=== PATIENT | male | born 1940 | race Caucasian/White ===

== ENCOUNTER 2025-06-07 12:04 | Inpatient (IN) | payer OTHER, MEDICAID ==
[~2025-06-07] VITALS: Ht 167.6 cm; Wt 78.2 kg
[2025-06-07] MEDS ORDERED: ACETAMINOPHEN 325MG TABLET PO ONE (12:45)
[2025-06-07 13:12] LABS: BASOPHILS % 0.2 % (0.0-2.0); EOSINOPHILS % 0.7 % (0.0-5.0); LYMPHOCYTES % 32.2 % (20.0-50.0); MEAN PLATELET VOLUME 7.7 fl (7.4-10.4); MONOCYTES % 12.8 % (2.0-8.0); NEUTROPHILS % 54.1 % (40.0-76.0); PLATELET 130 x1000/uL (130-400); RED BLOOD CELL COUNT 1.59 mill/uL (4.7-6.1); RED CELL DISTRIBUTION WIDTH 21.8 % (11.6-14.6)
[2025-06-07 13:46] LABS: CREATININE 3.3 mg/dL (0.6-1.3); UREA NITROGEN BLOOD 57 mg/dL (9-23)
[2025-06-07 13:47] LABS: HEMATOCRIT. 14.7 % (42.0-52.0); HEMOGLOBIN. 4.9 g/dL (14.0-18.0)
[2025-06-07 13:48] LABS: ASPARTATE AMINOTRANSFERASE 20 IU/L (<34); BILIRUBIN DIRECT 0.1 mg/dL (<=3.0); BILIRUBIN TOTAL 0.3 mg/dL (0.1-1.0)
[2025-06-07 13:49] LABS: PROTEIN TOTAL 9.7 g/dL (6.0-8.3)
[2025-06-07 14:02] LABS: TROPONIN I HIGH SENSITIVITY 814 ng/L (3.0-53)
[2025-06-07] MEDS: LACTATED RINGERS 1,000 ML IV SCH (14:35)
[2025-06-07] MEDS: ACETAMINOPHEN 325MG TABLET PO SCH (14:39)
[2025-06-07 15:36] LABS: TROPONIN I HIGH SENSITIVITY 939 ng/L (3.0-53)
[2025-06-07] MEDS ORDERED: ONDANSETRON HCL 4MG/2ML INJ IV PRN (16:00)
[2025-06-07] MEDS ORDERED: IPRATROPIUM/ALBUTEROL 0.5-3(2.5)MG/3ML NEB NEB PRN (16:00)
[2025-06-07] MEDS ORDERED: ACETAMINOPHEN 325MG TABLET PO PRN (16:00)
[2025-06-07] MEDS ORDERED: MAGNESIUM/ALUMINUM HYDROXIDE/SIMETHICONE 30ML UDC PO PRN (16:00)
[2025-06-07] MEDS ORDERED: NALOXONE HCL 0.4MG/ML VIAL IV PRN (16:15)
[2025-06-07 20:00] VITALS: BP 100/69; PULSE 57; RESP 17; TEMP 36.8; O2SAT 98
[2025-06-07] MEDS ORDERED: PANT40TA51 PO (21:10)
[2025-06-07] MEDS ORDERED: EMPA10TA PO (21:10)
[2025-06-07] MEDS ORDERED: ASPI-1160 PO (21:10)
[2025-06-07] MEDS ORDERED: FURO40TA5 PO (21:10)
[2025-06-07] MEDS ORDERED: BENA-8 PO (21:10)
[2025-06-07] MEDS ORDERED: ATOR40TA70 PO (21:10)
[2025-06-07] MEDS ORDERED: TAMS-54 (21:10)
[2025-06-07 22:00] VITALS: BP 123/66; PULSE 58; RESP 17; O2SAT 98
[2025-06-07 22:22] VITALS: BP 100/69; PULSE 57; RESP 17; TEMP 36.7516
[2025-06-07 22:44] LABS: TROPONIN I HIGH SENSITIVITY 1103 ng/L (3.0-53)
[2025-06-08] VITALS (12 sets, daily range): BP systolic 111–154; BP diastolic 58–80; PULSE 55–70; RESP 13–22; TEMP 36.1–37; O2SAT 98–100
[2025-06-08] MEDS: PIPERACILLIN/TAZO 3.375G/50ML 50 ML IV SCH
[2025-06-08] MEDS: SODIUM CHLORIDE 0.9% 1,000 ML IV SCH (02:17)
[2025-06-08 06:49] LABS: BASOPHILS % 0.3 % (0.0-2.0); EOSINOPHILS % 1.1 % (0.0-5.0); HEMATOCRIT. 22.4 % (42.0-52.0); HEMOGLOBIN. 7.3 g/dL (14.0-18.0); LYMPHOCYTES % 32.0 % (20.0-50.0); MEAN PLATELET VOLUME 8.0 fl (7.4-10.4); MONOCYTES % 14.1 % (2.0-8.0); NEUTROPHILS % 52.5 % (40.0-76.0); PLATELET 110 x1000/uL (130-400); RED BLOOD CELL COUNT 2.49 mill/uL (4.7-6.1); RED CELL DISTRIBUTION WIDTH 20.8 % (11.6-14.6)
[2025-06-08 07:01] LABS: CREATININE 2.6 mg/dL (0.6-1.3)
[2025-06-08 07:02] LABS: UREA NITROGEN BLOOD 51.0 mg/dL (9-23)
[2025-06-08 07:06] LABS: TROPONIN I HIGH SENSITIVITY 1333.0 ng/L (3.0-53)
[2025-06-08 08:03] LABS: *AMPHETAMINES SCREEN URINE NEGATIVE (NEGATIVE); *BARBITURATES SCREEN URINE NEGATIVE (NEGATIVE); *BENZODIAZEPINES SCREEN URINE NEGATIVE (NEGATIVE); *COCAINE SCREEN URINE NEGATIVE (NEGATIVE); METHADONE URINE SCREEN NEGATIVE (NEGATIVE)
[2025-06-08 08:04] LABS: CANNABINOID URINE SCREEN NEGATIVE (NEGATIVE); ECSTASY MDMA SCREEN URINE NEGATIVE (NEGATIVE); OPIATES URINE SCREEN NEGATIVE (NEGATIVE); PHENCYCLIDINE URINE SCREEN NEGATIVE (NEGATIVE)
[2025-06-08 08:25] LABS: CLARITY URINE CLEAR (CLEAR); COLOR URINE YELLOW (YELLOW); GLUCOSE URINE NEGATIVE (NEGATIVE); KETONES URINE NEGATIVE (NEGATIVE); LEUKOCYTE ESTERASE URINE 2+ (NEGATIVE); NITRITE URINE NEGATIVE (NEGATIVE); OCCULT BLOOD URINE NEGATIVE (NEGATIVE); PH URINE 5.0 (4.5-8.0); PROTEIN URINE NEGATIVE (NEGATIVE); SPECIFIC GRAVITY URINE 1.014 (1.005-1.030); UROBILINOGEN URINE 0.2 E.U./dL (0.2-1.0)
[2025-06-08 09:06] LABS: SQUAMOUS EPITHELIAL CELL URINE RARE /lpf (RARE/1+)
[2025-06-08 09:07] LABS: BACTERIA URINE 4+; RBC URINE 0-2 /hpf (0-2)
[2025-06-08] MEDS: PANTOPRAZOLE SODIUM 40 MG/VIAL IV SCH (09:14)
[2025-06-08 21:30] LABS: FOLIC ACID (FOLATE) SERUM 9.83 ng/mL (>5.38)
[2025-06-08 21:31] LABS: VITAMIN B12 SERUM 906 pg/mL (211-911)
[2025-06-09] VITALS (12 sets, daily range): BP systolic 112–155; BP diastolic 53–86; PULSE 57–62; RESP 16–23; TEMP 36.4–36.8; O2SAT 96–99
[2025-06-09 06:50] LABS: BASOPHILS % 0.2 % (0.0-2.0); EOSINOPHILS % 1.4 % (0.0-5.0); HEMATOCRIT. 21.8 % (42.0-52.0); HEMOGLOBIN. 7.2 g/dL (14.0-18.0); LYMPHOCYTES % 40.8 % (20.0-50.0); MEAN PLATELET VOLUME 8.3 fl (7.4-10.4); MONOCYTES % 10.4 % (2.0-8.0); NEUTROPHILS % 47.2 % (40.0-76.0); PLATELET 124 x1000/uL (130-400); RED BLOOD CELL COUNT 2.42 mill/uL (4.7-6.1); RED CELL DISTRIBUTION WIDTH 20.8 % (11.6-14.6)
[2025-06-09 07:10] LABS: CREATININE 2.9 mg/dL (0.6-1.3); UREA NITROGEN BLOOD 51.0 mg/dL (9-23)
[2025-06-09] MEDS: IRON SUCROSE COMPLEX 100 MG/5 ML ML IV NR (09:17)
[2025-06-09] MEDS: LACTULOSE 20G/30ML UDC PO SCH (12:34)
[2025-06-09] MEDS: FERROUS SULFATE 325MG TABLET PO SCH (12:34)
[2025-06-10] VITALS (17 sets, daily range): BP systolic 127–157; BP diastolic 63–98; PULSE 55–100; RESP 17–26; TEMP 36.3918–36.9; O2SAT 94–100
[2025-06-10 06:42] LABS: BASOPHILS % 0.2 % (0.0-2.0); EOSINOPHILS % 1.8 % (0.0-5.0); HEMATOCRIT. 21.3 % (42.0-52.0); LYMPHOCYTES % 36.7 % (20.0-50.0); MEAN PLATELET VOLUME 8.5 fl (7.4-10.4); MONOCYTES % 13.1 % (2.0-8.0); NEUTROPHILS % 48.2 % (40.0-76.0); PLATELET 112 x1000/uL (130-400); RED BLOOD CELL COUNT 2.32 mill/uL (4.7-6.1); RED CELL DISTRIBUTION WIDTH 21.1 % (11.6-14.6)
[2025-06-10 06:50] LABS: CREATININE 2.4 mg/dL (0.6-1.3); UREA NITROGEN BLOOD 38.0 mg/dL (9-23)
[2025-06-10 09:00] LABS: HEMOGLOBIN. 6.8 g/dL (14.0-18.0)
[2025-06-10 21:20] LABS: BASOPHILS % 0.3 % (0.0-2.0); EOSINOPHILS % 1.8 % (0.0-5.0); HEMATOCRIT. 23.8 % (42.0-52.0); HEMOGLOBIN. 7.9 g/dL (14.0-18.0); LYMPHOCYTES % 38.3 % (20.0-50.0); MEAN PLATELET VOLUME 8.4 fl (7.4-10.4); MONOCYTES % 14.2 % (2.0-8.0); NEUTROPHILS % 45.4 % (40.0-76.0); PLATELET 123 x1000/uL (130-400); RED BLOOD CELL COUNT 2.62 mill/uL (4.7-6.1); RED CELL DISTRIBUTION WIDTH 19.3 % (11.6-14.6)
[2025-06-11] VITALS (11 sets, daily range): BP systolic 123–163; BP diastolic 67–96; PULSE 48–64; RESP 15–58; TEMP 36.4–36.7; O2SAT 95–100
[2025-06-11 06:57] LABS: INR 1.2
[2025-06-11 06:59] LABS: UREA NITROGEN BLOOD 34 mg/dL (9-23)
[2025-06-11 07:00] LABS: CREATININE 2.4 mg/dL (0.6-1.3)
[2025-06-11 07:01] LABS: ASPARTATE AMINOTRANSFERASE 17 IU/L (<34)
[2025-06-11 07:02] LABS: BILIRUBIN DIRECT 0.3 mg/dL (<=3.0); PHOSPHORUS 3.9 mg/dL (2.5-4.9)
[2025-06-11 07:03] LABS: BILIRUBIN TOTAL 0.6 mg/dL (0.1-1.0); PROTEIN TOTAL 9.5 g/dL (6.0-8.3)
[2025-06-11 07:06] LABS: BASOPHILS % 0.5 % (0.0-2.0); EOSINOPHILS % 2.0 % (0.0-5.0); HEMATOCRIT. 25.1 % (42.0-52.0); HEMOGLOBIN. 8.3 g/dL (14.0-18.0); LYMPHOCYTES % 41.0 % (20.0-50.0); MEAN PLATELET VOLUME 8.7 fl (7.4-10.4); MONOCYTES % 10.5 % (2.0-8.0); NEUTROPHILS % 46.0 % (40.0-76.0); PLATELET 126 x1000/uL (130-400); RED BLOOD CELL COUNT 2.78 mill/uL (4.7-6.1); RED CELL DISTRIBUTION WIDTH 19.7 % (11.6-14.6)
[2025-06-11 07:07] LABS: ALPHA FETOPROTEIN TUMOR MARKER < 1.8 ng/mL (0.0-6.4); CARCINOEMBRYONIC AG - SEND OUT 3.5 ng/mL (0.0-4.7)
[2025-06-11] MEDS: LACTULOSE 20G/30ML UDC PO NR (11:56)
[2025-06-11] MEDS: HYDROCODONE/ACETAMINOPHEN 5/325MG TABLET PO PRN (12:05)
[2025-06-11] MEDS: CLONIDINE 0.1MG TABLET PO PRN (12:37)
[2025-06-11] MEDS: FERROUS SULFATE 325MG TABLET PO SCH (17:20)
[2025-06-11] MEDS: ASCORBIC ACID 250 MG TABLET PO SCH (17:20)
[2025-06-11] MEDS: SENNOSIDES/DOCUSATE SOD 8.6/50MG TABLET PO SCH (20:43)
[2025-06-12] VITALS: BP 146/85; PULSE 54; RESP 18; TEMP 36.4; O2SAT 98
[2025-06-12 04:00] VITALS: BP 130/65; PULSE 49; RESP 19; TEMP 36.4; O2SAT 98
[2025-06-12 07:37] LABS: BASOPHILS % 0.5 % (0.0-2.0); EOSINOPHILS % 2.2 % (0.0-5.0); HEMATOCRIT. 24.4 % (42.0-52.0); HEMOGLOBIN. 8.1 g/dL (14.0-18.0); LYMPHOCYTES % 34.7 % (20.0-50.0); MEAN PLATELET VOLUME 8.5 fl (7.4-10.4); MONOCYTES % 12.2 % (2.0-8.0); NEUTROPHILS % 50.4 % (40.0-76.0); PLATELET 115 x1000/uL (130-400); RED BLOOD CELL COUNT 2.70 mill/uL (4.7-6.1); RED CELL DISTRIBUTION WIDTH 19.8 % (11.6-14.6)
[2025-06-12 07:52] LABS: CREATININE 2.1 mg/dL (0.6-1.3); UREA NITROGEN BLOOD 29.0 mg/dL (9-23)
[2025-06-12 08:00] VITALS: BP 135/74; PULSE 49; RESP 19; TEMP 36.7; O2SAT 97
[2025-06-12] MEDS: PANTOPRAZOLE 40MG DR TABLET PO SCH (09:24)
[2025-06-12] MEDS ORDERED: FURO40TA5 PO (11:44)
[2025-06-12] MEDS ORDERED: PANT40TA51 PO (11:44)
[2025-06-12] MEDS ORDERED: ATOR40TA70 PO (11:44)
[2025-06-12] MEDS ORDERED: FERR-63 PO (11:45)
[2025-06-12] MEDS ORDERED: PROT40 MT (11:45)
[2025-06-12] MEDS ORDERED: EMPA10TA PO (11:45)
[2025-06-12 12:00] VITALS: BP 127/82; PULSE 56; RESP 22; TEMP 36.6; O2SAT 97
[2025-06-12 13:53] VITALS: BP 127/82; PULSE 61; TEMP 97.9; O2SAT 96
[2025-06-14 08:08] LABS: A/G RATIO 0.5 (0.7-1.7); BETA GLOBULIN 0.8 g/dL (0.7-1.3); GAMMA GLOBULINS 4.3 g/dL (0.4-1.8); GLOBULIN TOTAL 6.2 g/dL (2.2-3.9); M-SPIKE 3.9 g/dL (Not Observed); TOTAL PROTEIN SERUM 9.1 g/dL (6.0-8.5)
== END 2025-06-12 16:00 | disposition home or self-care (01) | DRG 660 ==
LOC: ER 12:04 → 5EST 14:37 → EDBEDREQSVC 14:41 → EDBEDREQTM 14:41 → EDBEDREQ 14:41 → ENRESERV 15:07
PROVIDERS: ADMIT Internal Medicine; ATTEND Internal Medicine
PROC: 30233N1 Transfusion of Nonautologous Red Blood Cells into Peripheral Vein, Percutaneous Approach (ICD-10-PCS; principal; 2025-06-07)
DX: D61.818 Other pancytopenia (principal); N17.0 Acute kidney failure with tubular necrosis; I21.A1 Myocardial infarction type 2; G93.40 Encephalopathy, unspecified; I50.21 Acute systolic (congestive) heart failure; E87.20 Acidosis, unspecified; D62 Acute posthemorrhagic anemia; I42.0 Dilated cardiomyopathy; I13.0 Hypertensive heart and chronic kidney disease with heart failure and stage 1 through stage 4 chronic kidney disease, or unspecified chronic kidney disease; I45.10 Unspecified right bundle-branch block; N18.9 Chronic kidney disease, unspecified; N39.0 Urinary tract infection, site not specified; E61.1 Iron deficiency; G89.29 Other chronic pain; M85.80 Other specified disorders of bone density and structure, unspecified site; Z79.899 Other long term (current) drug therapy
CPT/HCPCS: 36415; 71045; 72131; 73562; 74018; 76770; 80048; 80076; 80305; 81003; 82105; 82270; 82378; 82550; 82607; 82746; 83540; 83550; 83735; 84100; 84155; 84165; 84484; 85014; 85018; 85025; 85044; 86301; 86850; 86900; 86920; 93005; 93306; 93970; 99291; A4606; J2470; J2543; P9016